=== PATIENT | male | born 1980 | race Caucasian/White ===

== ENCOUNTER 2017-10-04 11:48 | Emergency (ER) | payer MEDICAID, OTHER ==
[~2017-10-04] VITALS: Ht 182.9 cm; Wt 100.0 kg
[~2017-10-04 11:48] MED LIST: CEPH-357 PO; HYDR-569 PO; ZIPR80CA2 PO
[2017-10-04] MEDS ORDERED: SULF1TAB49 PO (12:44)
[2017-10-04] MEDS ORDERED: CEPH500C5 PO (12:44)
[2017-10-04] MEDS ORDERED: CefTRIAXone 1000mg IM Kit (w/lidocaine diluent) IM ONE (12:45)
[2017-10-04 13:10] VITALS: BP 123/72
== END 2017-10-04 13:11 | disposition home or self-care (01) ==
LOC: ER 11:49
DX: L03.116 Cellulitis of left lower limb (principal); L03.115 Cellulitis of right lower limb; F15.10 Other stimulant abuse, uncomplicated; F12.10 Cannabis abuse, uncomplicated; G89.29 Other chronic pain; F17.200 Nicotine dependence, unspecified, uncomplicated; Z59.0 Homelessness; Z56.0 Unemployment, unspecified; Z98.890 Other specified postprocedural states; Z86.19 Personal history of other infectious and parasitic diseases; Z88.8 Allergy status to other drugs, medicaments and biological substances
CPT/HCPCS: 96372; 99284; J0696

== ENCOUNTER 2020-09-16 04:18 | Emergency (ER) | payer OTHER ==
[~2020-09-16] VITALS: Ht 182.9 cm; Wt 127.3 kg
[~2020-09-16 04:18] MED LIST changes: +HYDR-4383 PO; -HYDR-569 PO
[2020-09-16 04:22] VITALS: BP 161/108
[2020-09-16] MEDS ORDERED: ondansetron 4mg rapidly disintigrating tab PO STA (04:28)
[2020-09-16] MEDS ORDERED: mag hydrox/Alum hydrox/simeth 30ml oral suspension PO ONE (04:30)
[2020-09-16] MEDS ORDERED: LIDOcaine Viscous 15ml cup TP ONE (04:30)
[2020-09-16 04:54] LABS: BASOPHILS # (AUTO) 0.1 X10'3 (0-0.2); BASOPHILS % (AUTO) 0.7 % (0-1); EOSINOPHILS # (AUTO) 0.1 X10'3 (0-0.9); EOSINOPHILS % (AUTO) 1.7 % (0-6); HEMATOCRIT 42.4 % (42.0-52.0); HEMOGLOBIN 14.4 g/dl (14.0-17.9); LYMPHOCYTES # (AUTO) 2.1 X10'3 (1.1-4.8); LYMPHOCYTES % (AUTO) 25.9 % (21-51); MEAN CORPUSCULAR HEMOGLOBIN 27.6 PG (27.0-31.0); MEAN CORPUSCULAR HGB CONC 33.9 g/dL (33.0-36.5); MEAN CORPUSCULAR VOLUME 81.4 FL (78-98); MEAN PLATELET VOLUME 6.8 FL (7.4-10.4); MONOCYTES # (AUTO) 0.6 X10'3 (0-0.9); MONOCYTES % (AUTO) 6.7 % (2-12); NEUTROPHILS # (AUTO) 5.4 X10'3 (1.8-7.7); PLATELET COUNT 387 X10'3 (140-440); RED BLOOD COUNT 5.21 X10'6 (4.70-6.10); WHITE BLOOD COUNT 8.2 X10'3 (4.5-11.0)
[2020-09-16 05:11] LABS: ALANINE AMINOTRANSFERASE 25 U/L (12-78); ALBUMIN 3.4 G/DL (3.4-5.0); ALBUMIN/GLOBULIN RATIO 0.8 (1.1-1.5); ALKALINE PHOSPHATASE 93 IU/L (46-116); ANION GAP 10 (8-16); ASPARTATE AMINO TRANSFERASE 19 U/L (10-37); BILIRUBIN,TOTAL 0.2 MG/DL (0.1-1.0); BLOOD UREA NITROGEN 18 MG/DL (7-18); BUN/CREATININE RATIO 17.8 (5.4-32.0); CHLORIDE 105 MMOL/L (99-107); CREATININE 1.01 MG/DL (0.60-1.10); GLUCOSE 119 MG/DL (70-104); LIPASE 393 U/L (73-393); POTASSIUM 4.1 MMOL/L (3.5-5.1); SODIUM 139 MMOL/L (135-145); TOTAL CARBON DIOXIDE 23.6 MMOL/L (24-32); TOTAL PROTEIN 7.8 G/DL (6.4-8.2); eGFR 82 ML/MIN
[2020-09-16] MEDS ORDERED: ONDA4TAB6 PO (05:19)
[2020-09-16] MEDS ORDERED: SUCR1TAB34 PO (05:19)
[2020-09-16 05:55] LABS: H PYLORI ANTIBODY NEGATIVE (Neg)
== END 2020-09-16 06:10 | disposition home or self-care (01) ==
LOC: ER 04:19
DX: R11.2 Nausea with vomiting, unspecified (principal); R10.13 Epigastric pain; G89.29 Other chronic pain; F12.90 Cannabis use, unspecified, uncomplicated; F15.90 Other stimulant use, unspecified, uncomplicated; Z86.69 Personal history of other diseases of the nervous system and sense organs; Z86.19 Personal history of other infectious and parasitic diseases; Z98.890 Other specified postprocedural states; Z60.2 Problems related to living alone; Z59.0 Homelessness; Z56.0 Unemployment, unspecified; Z88.8 Allergy status to other drugs, medicaments and biological substances; Z79.2 Long term (current) use of antibiotics; Z79.899 Other long term (current) drug therapy
CPT/HCPCS: 36415; 80053; 83690; 85025; 86677; 99284

== ENCOUNTER 2021-03-23 15:09 | Emergency (ER) | payer SELFPAY ==
[~2021-03-23] VITALS: Ht 182.9 cm; Wt 119.7 kg
[~2021-03-23 15:09] MED LIST changes: +ONDA4TAB6 PO; +SUCR1TAB34 PO
[2021-03-23 15:19] VITALS: BP 148/98
[2021-03-23] MEDS ORDERED: CefTRIAXone 1000mg IM Kit (w/lidocaine diluent) IM STA (16:37)
[2021-03-23] MEDS ORDERED: ondansetron 4mg rapidly disintigrating tab PO ONE (16:40)
[2021-03-23] MEDS ORDERED: HYDROcodone/acetaminophen 5mg/325mg tablet PO ONE (16:40)
[2021-03-23] MEDS ORDERED: azithromycin 250mg tablet PO ONE (16:40)
[2021-03-23] MEDS ORDERED: ketorolac tromethamine 15mg/ml inj. IM ONE (19:30)
[2021-03-23] MEDS ORDERED: DOXY100C77 PO (19:31)
[2021-03-23] MEDS ORDERED: IBUP-1984 PO (19:31)
[2021-03-23 20:09] LABS: CLARITY,URINE SLIGHTLY CLOUDY (Clear); COLOR,URINE YELLOW (Yellow); GLUCOSE, URINE NEGATIVE (Neg); KETONES,URINE NEGATIVE (Neg); LEUKOCYTE ESTERASE ,URINE LARGE (Neg); NITRITES, URINE NEGATIVE (Neg); OCCULT BLOOD,URINE SMALL (Neg); PROTEIN,URINE TRACE mg/dl (Neg); UROBILINOGEN,URINE 0.2 E.U/dL (0.2-1.0)
[2021-03-23 20:25] LABS: UA COLLECTION TYPE VOIDED
[2021-03-23 20:27] LABS: BACTERIA,URINE NONE SEEN /HPF (Neg); MUCUS STRANDS FEW /LPF (Neg); SQUAMOUS EPITHELIAL CELL,UR FEW /LPF (FEW); WBC,URINE TNTC /HPF (0-4)
== END 2021-03-23 19:45 | disposition home or self-care (01) ==
LOC: ER 15:10
DX: N45.1 Epididymitis (principal); N50.812 Left testicular pain; R30.9 Painful micturition, unspecified; G89.29 Other chronic pain; F12.90 Cannabis use, unspecified, uncomplicated; F15.90 Other stimulant use, unspecified, uncomplicated; Z86.69 Personal history of other diseases of the nervous system and sense organs; Z86.19 Personal history of other infectious and parasitic diseases; Z60.2 Problems related to living alone; Z56.0 Unemployment, unspecified; Z59.0 Homelessness; Z98.890 Other specified postprocedural states; Z88.8 Allergy status to other drugs, medicaments and biological substances; Z79.2 Long term (current) use of antibiotics; Z79.899 Other long term (current) drug therapy
CPT/HCPCS: 36415; 76870; 81001; 87088; 87491; 87591; 93976; 96372; 99284; J0696

== ENCOUNTER 2021-09-24 15:37 | Emergency (ER) | payer OTHER ==
[~2021-09-24] VITALS: Ht 182.9 cm; Wt 91.0 kg
--- NOTE | 2021-09-24 16:20 | NUR ---
Attempted to start an IV x 2. 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
--- NOTE | 2021-09-24 16:35 | NUR ---
Dr. Serrano at bedside to attempt an ultrasound guided IV start x 2. He was unsuccessful. After MD left the room the pt began swearing and stated that he wanted to go to [facility]. "You guys don't know what your are fucking doing. Where did you get your licence? A cracker amena box."
[2021-09-24] MEDS ORDERED: proCHLORperazine 10 MG/2 ml inj IM ONE (16:45)
[2021-09-24] MEDS ORDERED: ketorolac trometh inj. 60 MG/2 ML VIAL IM ONE (16:45)
[2021-09-24] MEDS ORDERED: ondansetron 4mg rapidly disintigrating tab PO ONE (16:45)
--- NOTE | 2021-09-24 17:10 | NUR ---
Second nurse attempted IV. Unsuccessful. MD is aware.
[2021-09-24 17:35] LABS: BASOPHILS # (AUTO) 0.1 X10'3 (0-0.2); BASOPHILS % (AUTO) 0.6 % (0-1); EOSINOPHILS # (AUTO) 0.1 X10'3 (0-0.9); EOSINOPHILS % (AUTO) 0.9 % (0-6); HEMATOCRIT 45.9 % (42.0-52.0); HEMOGLOBIN 15.2 g/dl (14.0-17.9); LYMPHOCYTES # (AUTO) 3.3 X10'3 (1.1-4.8); LYMPHOCYTES % (AUTO) 25.1 % (21-51); MEAN CORPUSCULAR HEMOGLOBIN 26.5 PG (27.0-31.0); MEAN CORPUSCULAR HGB CONC 33.1 g/dL (33.0-36.5); MEAN PLATELET VOLUME 6.9 FL (7.4-10.4); MONOCYTES # (AUTO) 0.9 X10'3 (0-0.9); MONOCYTES % (AUTO) 6.9 % (2-12); NEUTROPHILS # (AUTO) 8.7 X10'3 (1.8-7.7); NEUTROPHILS % (AUTO) 66.5 % (42-75); PLATELET COUNT 464 X10'3 (140-440); RED BLOOD COUNT 5.74 X10'6 (4.70-6.10); RED CELL DISTRIBUTION WIDTH 16.3 % (11.5-14.5); WHITE BLOOD COUNT 13.1 X10'3 (4.5-11.0)
[2021-09-24 17:48] LABS: ALANINE AMINOTRANSFERASE 26 U/L (12-78); ALBUMIN 3.2 G/DL (3.4-5.0); ALBUMIN/GLOBULIN RATIO 0.7 (1.1-1.5); ALKALINE PHOSPHATASE 108 IU/L (46-116); ANION GAP 6 (8-16); ASPARTATE AMINO TRANSFERASE 18 U/L (10-37); BILIRUBIN,TOTAL 0.4 MG/DL (0.1-1.0); BLOOD UREA NITROGEN 17 MG/DL (7-18); BUN/CREATININE RATIO 13.7 (5.4-32.0); CALCIUM 9.1 MG/DL (8.5-10.1); CHLORIDE 103 MMOL/L (99-107); CREATININE 1.24 MG/DL (0.60-1.10); GLUCOSE 97 MG/DL (70-104); LIPASE 106 U/L (73-393); POTASSIUM 4.2 MMOL/L (3.5-5.1); SODIUM 139 MMOL/L (135-145); TOTAL CARBON DIOXIDE 30.1 MMOL/L (24-32); TOTAL PROTEIN 8.1 G/DL (6.4-8.2); eGFR 64 ML/MIN
[2021-09-24 18:20] VITALS: BP 138/93
== END 2021-09-24 18:44 | disposition home or self-care (01) ==
LOC: ER 15:37 → EEVIPCON 15:37 → ER 18:44
DX: R11.2 Nausea with vomiting, unspecified (principal); K22.6 Gastro-esophageal laceration-hemorrhage syndrome; G89.29 Other chronic pain; F12.90 Cannabis use, unspecified, uncomplicated; F15.90 Other stimulant use, unspecified, uncomplicated; Z86.69 Personal history of other diseases of the nervous system and sense organs; Z86.19 Personal history of other infectious and parasitic diseases; Z98.890 Other specified postprocedural states; Z60.2 Problems related to living alone; Z56.0 Unemployment, unspecified; Z59.00 Homelessness unspecified; Z88.8 Allergy status to other drugs, medicaments and biological substances; Z79.2 Long term (current) use of antibiotics; Z79.899 Other long term (current) drug therapy
CPT/HCPCS: 36415; 80053; 83690; 85025; 96372; 99284; J0780; J1885

== ENCOUNTER 2025-06-19 15:33 | Emergency (ER) | payer MEDICAID, OTHER ==
[~2025-06-19] VITALS: Ht 182.9 cm; Wt 144.1 kg
--- NOTE | 2025-06-19 16:01 | Physician Documentation ---
History of Present Illness ~ Chief Complaint: Knee Pain Stated Complaint: R KNEE PAIN Time Seen by MD: 15:40 Primary Medical Doctor: NONE HPI 44-year-old male was riding his long board when he was trying to go over curb and fell his knee giving out and twisting. Patient is here complaining of right knee pain Tetanus witin 5 years: Yes Medication Reconciliation Allergies: Coded Allergies: lamotrigine (Verified Allergy, Intermediate, RASH, 06/19/25) Scheduled Cephalexin Monohydrate* (Keflex*), 1 CAP PO TID Sucralfate (Carafate), 1 TAB PO Q6H Ziprasidone Hcl (Geodon), 1 CAP PO BID Scheduled PRN Hydrocodone/Acetaminophen (Gillette 5-325 Tablet), 1 TABLET PO Q6H PRN for pain Ondansetron Hcl (Zofran), 1 TAB PO Q8H PRN for nausea/vomiting Past Medical History Past Medical History: No Pertinent History, Seizures, Hepatitis C, Chronic Back Pain Past Surgical History: no surgical history, other Other Past Surgical History: Upper Lip Surgery Alcohol Use: None Drug Use: marijuana, methamphetamine Lives with: Alone Lives In: Homeless Occupation: unemployed Review of Systems All Other Systems at this time: Reviewed and Negative Musculoskeletal: Reports: see HPI Physical Exam Vital Signs: RN Vital Signs have been reviewed: Yes, Temperature: 98.4, Source: Oral, Heart Rate: 102, Respiratory Rate: 22, BP: 157/96, Pulse Oximetry: 96, Weight: 144.100 Oxygen Flow Rate: 0 Physical Exam General: Alert, no apparent distress. HEENT: moist mucous membranes. Neck: Full range of motion. Respiratory: No respiratory distress speaking in full sentences Chest: No accessory muscle use. Cardiovascular: Appears well perfused Musculoskeletal: Right knee tender to palpate good patellar tracking no obvious deformity or effusion Neurologic: Oriented x4. Psychiatric: Normal mood and affect. Skin: Normal color, warm and dry. No edema, no ecchymosis. Progress Results/Orders Results/Orders Orders - YANNI MCNEAL [employer] Knee 3 Vws (06/19/25 15:40) Ct Lower Extremity (06/19/25 16:47) Ortho Orders (06/19/25 ) Completed Orders - YANNI MCNEAL [employer] Knee 3 Vws (06/19/25 15:40) Ct Lower Extremity (06/19/25 16:47) Hydrocodone/Apap 10/325 (Gillette 10/325mg (06/19/25 16:50) Ibuprofen Tablet (Motrin Tablet) (06/19/25 16:50) Medications Received in ER Medications (Trade) Dose Ordered Sig/Aida Route PRN Reason Start Time Stop Time Status Last Admin Dose Admin (Gillette 10/325mg tab) 1 tab ONCE ONCE PO 06/19/25 16:50 06/19/25 16:51 DC 06/19/25 17:16 1 TAB (Motrin tablet) 800 mg ONCE ONCE PO 06/19/25 16:50 06/19/25 16:51 DC 06/19/25 17:15 800 MG Vital Signs 06/19/25 06/19/25 15:40 17:16 Temp 98.4 Pulse 102 Resp 22 16 B/P (MAP) 157/96 Pulse Ox 96 O2 Flow Rate 0 EKG/XRAY/CT/US/VASC/MRI Bone/Soft Tissue X-Ray (Ext.) : Additional Comment Indication: fall RIGHT KNEE Technique: DI KNEE 3 VWSKNEE 3VWS Comparison: None FINDINGS/IMPRESSION: Fracture of the tibial plateau involving the medial tibial spine, lateral tibial plateau. Fracture extends to the posterior tibial plateau cortex. Recommend CT right knee 2 dejesus characterize. Associated large suprapatellar effusion. 5 mm radiopaque density on the lateral view projecting at the level of the inferior patellar tendon. Correlate clinically. : Impression INDICATION: Fall injury on skateboard COMPARISON: None TECHNIQUE: CT of the right knee was performed without contrast. Volume transverse images were obtained and reconstructed in multiple planes using bone and soft tissue algorithms. Radiation Dose Information: CT Dose: CTDI volume is 16.7 cm mGy. Dose-length product is 47.21 mGy*cm FINDINGS: Comminuted minimally displaced fracture through the central aspect of the tibial plateau with fracture line also extending into lateral tibial plateau posteriorly. Presumed ACL avulsion type injury as the ACL footplate appears avulsed. Alignment is near anatomic with a few min with displaced fracture fragments at the central tibial plateau. Large lipohemarthrosis. No femur or patellar fractures. IMPRESSION: Comminuted minimally displaced fracture involving the central aspect of the tibial plateau extending into the lateral tibial plateau. Presumed ACL avulsion injury. All CT scans at this medical facility are performed using dose modulation techniques as appropriate to a performed exam including the following: Automated exposure control was utilized; adjustment of the MA and/or KV according to patient size; and use of iterative reconstruction technique. Medical Decision Making Additional information obtaine: N/A Findings No obvious deformity x-ray to evaluate for any osseous abnormality. Tibial plateau fracture radiopaque density 5 mm by the patella CT recommended and ordered she shows comminuted and minimally displaced tibial plateau fracture and likely ACL avulsion with that is small density. Patient is placed in a knee immobilizer nonweightbearing and crutches to follow up with orthopedics General Diff Dx:Considerations: Unlikely: Abrasion, Contusion, Fracture, Hematoma, Laceration, Malunion, Neurovascular injury, Open fracture, Sprain, Ulcer, Other Knee Diff Dx:Considerations: Include: Abrasion, Contusion, Fracture-fibula, Fracture-patella, Fracture-tibia, Sprain, Other Ankle Diff Dx:Considerations: Unlikely: Abrasion, Arthritis, Contusion, DJD, Fracture-metatarsal, Fracture-fibula, Fracture-tarsal, Fracture-tibia, Gout, Hematoma, Laceration, Malunion, Neurovascular injury, Nonunion, Open fracture, Osteomyelitis, Rheumatoid arthritis, Sprain, Septic, Ulcer, Other Foot Diff Dx:Considerations: Unlikely: Abrasion, Arthritis, Cellulitis, Contusion, Dislocation, DJD, Fracture-metatarsal, Fracture-phalynx, Fracture- tarsal, Gout, Hematoma, Ingrown toenail, Laceration, Malunion, Neurovascular injury, Open fracture, Paronychia, Puncture, Rheumatoid, Sprain, Septic, Subungual hematoma, Ulcer, Other Toe Diff Dx:Considerations: Unlikely: Abrasion, Cellulitis, Contusion, Dislocation, Felon, Fracture, Hematoma, Laceration, Neurovascular injury, Open fracture, Paronychia, Subungual hematoma, Other Departure Time of Disposition: 17:35 Disposition: 01 HOME / SELF CARE / HOMELESS Impression: Primary Impression: Tibial plateau fracture, right Additional Impression: ACL (anterior cruciate ligament) tear Condition: Stable Discharge Instructions: Displaced Tibial Plateau Fracture Additional Instructions: Follow up with primary care as well as call [facility] Sunday for fur ther treatment and evaluation. Nonweightbearing on the left lower extremity use crutches do not remove your knee immobilizer until seen by [facility]. Take pain medications as prescribed INDICATION: Fall injury on skateboard COMPARISON: None TECHNIQUE: CT of the right knee was performed without contrast. Volume transverse images were obtained and reconstructed in multiple planes using bone and soft tissue algorithms. FINDINGS: Comminuted minimally displaced fracture through the central aspect of the tibial plateau with fracture line also extending into lateral tibial plateau posteriorly. Presumed ACL avulsion type injury as the ACL footplate appears avulsed. Alignment is near anatomic with a few min with displaced fracture fragments at the central tibial plateau. Large lipohemarthrosis. No femur or patellar fractures. IMPRESSION: Comminuted minimally displaced fracture involving the central aspect of the tibial plateau extending into the lateral tibial plateau. Presumed ACL avulsion injury. All CT scans at this medical facility are performed using dose modulation techniques as appropriate to a performed exam including the following: Automated exposure control was utilized; adjustment of the MA and/or KV according to patient size; and use of iterative reconstruction technique. Referrals: NO PRIMARY CARE PROVIDER (PCP) [facility] Prescriptions Ibuprofen (Ibu) 800 Mg Tablet 1 TAB PO Q8H for 7 Days, #21 TAB 0 Refills Prov: YANNI MCNEAL NP 06/19/25 Hydrocodone Bit/Acetaminophen (Hydrocodon-Acetaminophn 10-325 tablet) 10mg- 325mg Tablet 1 TAB PO TID PRN PRN for pain for 10 Days, #30 TAB Prov: YANNI MCNEAL NP 06/19/25 Education Educated: Patient Educated regarding: diagnosis, treatment, need for follow up Signature Scribe Signature: No scribe Attestation: The note accurately reflects work and decisions made by me.Yanni MARSHALL 06/19/25 17:42 YANNI MCNEAL NP Jun 19, 2025 16:01
--- NOTE | 2025-06-19 16:17 | RADIOLOGY REPORT ---
Indication: fall RIGHT KNEE Technique: DI KNEE 3 VWSKMARTHAE 3VWS Comparison: None FINDINGS/IMPRESSION: Fracture of the tibial plateau involving the medial tibial spine, lateral tibial plateau. Fracture extends to the posterior tibial plateau cortex. Recommend CT right knee 2 dejesus characterize. Associated large suprapatellar effusion. 5 mm radiopaque density on the lateral view projecting at the level of the inferior patellar tendon. Correlate clinically.
[2025-06-19] MEDS: ibuprofen tablet 400 MG TABLET PO ONE (17:15)
[2025-06-19] MEDS: HYDROcodone/acetaminophen 10/325mg tab PO ONE (17:16)
--- NOTE | 2025-06-19 17:30 | RADIOLOGY REPORT ---
INDICATION: Fall injury on skateboard COMPARISON: None TECHNIQUE: CT of the right knee was performed without contrast. Volume transverse images were obtained and reconstructed in multiple planes using bone and soft tissue algorithms. Radiation Dose Information: CT Dose: CTDI volume is 16.7 cm mGy. Dose-length product is 47.21 mGy*cm FINDINGS: Comminuted minimally displaced fracture through the central aspect of the tibial plateau with fracture line also extending into lateral tibial plateau posteriorly. Presumed ACL avulsion type injury as the ACL footplate appears avulsed. Alignment is near anatomic with a few min with displaced fracture fragments at the central tibial plateau. Large lipohemarthrosis. No femur or patellar fractures. IMPRESSION: Comminuted minimally displaced fracture involving the central aspect of the tibial plateau extending into the lateral tibial plateau. Presumed ACL avulsion injury. All CT scans at this medical facility are performed using dose modulation techniques as appropriate to a performed exam including the following: Automated exposure control was utilized; adjustment of the MA and/or KV according to patient size; and use of iterative reconstruction technique.
[2025-06-19] MEDS ORDERED: HYDR-3972 PO (17:41)
[2025-06-19] MEDS ORDERED: IBUP-864 PO (17:41)
[2025-06-19 17:53] VITALS: BP 126/82; PULSE 66; RESP 16; TEMP 98.4; O2SAT 98
== END 2025-06-19 17:55 | disposition home or self-care (01) ==
LOC: ER 15:34
DX: S82.141A Displaced bicondylar fracture of right tibia, initial encounter for closed fracture (principal); S83.8X1A Sprain of other specified parts of right knee, initial encounter; F12.90 Cannabis use, unspecified, uncomplicated; F15.90 Other stimulant use, unspecified, uncomplicated; Z88.8 Allergy status to other drugs, medicaments and biological substances; Z79.899 Other long term (current) drug therapy; G89.29 Other chronic pain; Z56.0 Unemployment, unspecified; Z59.00 Homelessness unspecified; Z60.2 Problems related to living alone; V00.131A Fall from skateboard, initial encounter; Y93.51 Activity, roller skating (inline) and skateboarding; Y92.89 Other specified places as the place of occurrence of the external cause; Y99.8 Other external cause status
CPT/HCPCS: 29505; 73562; 73700; 99284; A6449

== ENCOUNTER 2025-07-15 14:05 | Outpatient (CLI) | payer MEDICAID ==
[~2025-07-15 14:05] MED LIST changes: +IBUP-864 PO
--- NOTE | 2025-07-15 16:06 | RADIOLOGY REPORT ---
CLINICAL HISTORY: Right knee pain. COMPARISON: CT CT LOWER EXTREMITY on DOS: 06/19/25, DI KNEE 3 VWS on DOS: 06/19/25 TECHNIQUE: Multisequence multiplanar MRI images of the right knee were obtained without contrast. FINDINGS: Cruciate ligaments: Edema along the course of the ACL, consistent with sprain with comminuted fracture undermining the tibial attachment of the ACL. PCL is intact. Extensor mechanism: Quadriceps mechanism and patellar tendon are intact. Collateral ligaments: Medial and lateral collateral ligaments are intact and otherwise unremarkable. Menisci: Intrasubstance degeneration in the body and posterior horn of the medial meniscus without evidence of tear. Intrasubstance degeneration in the posterior horn of the lateral meniscus without evidence of tear. Cartilage: Chondral thinning in the medial and lateral compartments without focal chondral defect. Bones: Prominent marrow edema involving the lateral tibial plateau and tibial eminence with comminuted fracture involving the tibial eminence and posterior aspect of the lateral tibial plateau. No significant depression associated with the lateral tibial plateau fracture. The fracture at the tibial eminence undermines the tibial attachment of the ACL with mild superior displacement of a fracture fragment associated with the ACL attachment site. A fracture fragment at the posterior aspect of the tibial eminence appears to involve the posterior root attachment of the medial meniscus. Joint fluid: Moderate to large amount of fluid in the suprapatellar recess, suspected hemarthrosis in the setting of fracture. Other: No other significant findings. IMPRESSION: 1. Acute, comminuted fracture involving the lateral tibial plateau and tibial eminence as detailed above. 2. Sprain of the ACL with the tibial attachment of the ACL undermined by a component of the tibial eminence fracture, which is slightly elevated at the site of the ACL attachment. 3. The posterior root attachment of the medial meniscus is undermined by a component of the tibial eminence fracture. 4. Moderate to large amount of fluid, suspected hemarthrosis in the suprapatellar recess. 5. Additional findings as detailed above.
== END 2025-07-15 23:59 | disposition home or self-care (01) ==
LOC: MRI 14:05
PROVIDERS: ATTEND Pediatrics Sports Medicine
DX: S82.251A Displaced comminuted fracture of shaft of right tibia, initial encounter for closed fracture (principal); S82.114A Nondisplaced fracture of right tibial spine, initial encounter for closed fracture; M25.561 Pain in right knee; M25.461 Effusion, right knee; M25.361 Other instability, right knee; X58.XXXA Exposure to other specified factors, initial encounter; Y93.89 Activity, other specified; Y92.89 Other specified places as the place of occurrence of the external cause; Y99.8 Other external cause status; S83.511A Sprain of anterior cruciate ligament of right knee, initial encounter; M23.321 Other meniscus derangements, posterior horn of medial meniscus, right knee; M23.351 Other meniscus derangements, posterior horn of lateral meniscus, right knee
CPT/HCPCS: 73721